=== PATIENT | male | born 1970 | race African-American/Black ===

== ENCOUNTER 2017-01-03 16:18 | Emergency (ER) | payer MEDICAID ==
[~2017-01-03] VITALS: Ht 190.5 cm; Wt 87.0 kg
[~2017-01-03 16:18] MED LIST: CARI350T PO; COMBIV IH; FLUT1DIS5 IH; HYDR-519 PO; PROAIR HFA IH
[2017-01-03 19:33] VITALS: BP 120/86
== END 2017-01-03 19:41 | disposition home or self-care (01) ==
LOC: ER 17:11
DX: G06.2 Extradural and subdural abscess, unspecified (principal); J45.909 Unspecified asthma, uncomplicated; Z98.890 Other specified postprocedural states; Z88.6 Allergy status to analgesic agent; Z91.013 Allergy to seafood; Z79.899 Other long term (current) drug therapy
CPT/HCPCS: 99283

== ENCOUNTER 2017-03-20 14:53 | Emergency (ER) | payer MEDICAID ==
[~2017-03-20] VITALS: Ht 190.5 cm; Wt 91.0 kg
[2017-03-20 15:04] VITALS: BP 137/74
== END 2017-03-20 20:30 | disposition left against medical advice (07) ==
LOC: ER 20:14
DX: Z53.21 Procedure and treatment not carried out due to patient leaving prior to being seen by health care provider (principal)

== ENCOUNTER 2019-08-13 15:44 | Emergency (ER) | payer MEDICAID ==
[~2019-08-13] VITALS: Ht 193 cm; Wt 95.0 kg
[~2019-08-13 15:44] MED LIST changes: -CARI350T PO; +FLUT1DIS3 INH; -FLUT1DIS5 IH; +GABA600T PO; +HYDR-4009 PO; -HYDR-519 PO; +P20 MT; -PROAIR HFA IH
[2019-08-13] MEDS ORDERED: METHYLPREDNISOLONE SOD SUCC 125 MG/2 ML VIAL IV STA (17:05)
[2019-08-13] MEDS ORDERED: SODIUM CHLORIDE 0.9% 1,000 ML IV ONE (17:05)
[2019-08-13] MEDS ORDERED: LEVOFLOXACIN 500MG PREMIX 100 ML IV ONE (17:15)
[2019-08-13] MEDS ORDERED: MAGNESIUM 2 G PREMIX 50 ML IV ONE (17:15)
[2019-08-13] MEDS ORDERED: IPRATROPIUM/ALBUTEROL 0.5-3(2.5)MG/3ML NEB HHN ONE (17:15)
[2019-08-13 17:56] LABS: BASOPHILS % 0.5 % (0.0-2.0); EOSINOPHILS % 1.4 % (0.0-5.0); HEMATOCRIT. 42.9 % (42.0-52.0); HEMOGLOBIN. 14.7 g/dL (14.0-18.0); LYMPHOCYTES % 34.9 % (20.0-50.0); MEAN CORPUSCULAR HEMOGLOBIN 30.9 pg (28.0-32.0); MEAN CORPUSCULAR VOLUME 90.2 fL (80.0-94.0); MEAN PLATELET VOLUME 8.1 fl (7.4-10.4); MONOCYTES % 8.7 % (2.0-8.0); NEUTROPHILS % 54.5 % (40.0-76.0); PLATELET 215 x1000/uL (130-400); RED BLOOD CELL COUNT 4.76 mill/uL (4.7-6.1); RED CELL DISTRIBUTION WIDTH 13.5 % (11.6-14.6)
[2019-08-13 17:59] LABS: CHLORIDE 105 mEq/L (98-107)
[2019-08-13 18:03] LABS: ETHANOL BLOOD < 10 mg/dL
[2019-08-13] MEDS ORDERED: ONDANSETRON HCL 4MG/2ML INJ IV ONE (20:15)
[2019-08-13] MEDS ORDERED: MORPHINE SULFATE 4 MG/ML CPJ (NOT FOR IM USE) IV ONE (20:15)
[2019-08-13] MEDS ORDERED: ALBUTEROL (0.083%) 2.5MG/3ML NEB HHN ONE (21:00)
[2019-08-13 21:44] VITALS: BP 129/75
== END 2019-08-13 22:16 | disposition home or self-care (01) ==
LOC: ER 15:44
DX: J45.901 Unspecified asthma with (acute) exacerbation (principal); G89.29 Other chronic pain; M54.5 Low back pain; E86.0 Dehydration; Z88.6 Allergy status to analgesic agent; Z91.013 Allergy to seafood
CPT/HCPCS: 36415; 71045; 80053; 80320; 83605; 83880; 84484; 85025; 87040; 94640; 96365; 96366; 96368; 96375; 99284; J1956; J2270; J2405; J2930; J3475; J7030; J7611; J7620; Z7610; G0480